=== PATIENT | male | born 1955 | race Caucasian/White ===

== ENCOUNTER 2019-08-04 14:54 | Outpatient (CLI) | payer OTHER ==
--- NOTE | 2019-08-04 16:13 | CT ---
CT CHEST WITH CONTRAST CLINICAL INDICATION: Recent chest x-ray suggested pulmonary nodule at the left lung base in a patient with cough. CT thora x is recommended. COMPARISON: Chest x-ray on 06/11/2019 FINDINGS: Aorta: The aorta is normal in caliber without evidence of an aortic dissection. Lungs: Minimal emphysematous changes are seen in the upper lobes. There is no discrete pulmonary nodu le, mass, or pleural effusion seen within the lungs bilaterally. Minimal volume loss is present at the right lung base and in the lingula. The questioned nodular density at the left lung base may have been related to atelectasis or irregularity of epicardial fat pad which is noted on this exam. Mediastinum: Calcified mediastinal and left hilar lymph nodes are present. No enlarged lymph nodes ar e seen. Thyroid gland: Incompletely imaged but where seen has a normal appearance. Osseous structures: Mild degenerative changes are seen in the spine. Chest wall: No abnormality visualized. Upper abdomen: Calcified hepatic and splenic granulomata are seen. The liver does demonstrate diminis hed attenuation likely attributable to fatty infiltration. IMPRESSION: 1. No discrete pulmonary nodule or mass is seen in the lungs bilaterally. There is no pulmonary nodul e to correspond to prior chest x-ray abnormality, and the findings on prior chest x-ray may have been related to atelectasis or mild irregularity of the epicardial fat pad seen at the left lung base on today's study. 2. Mild COPD. 3. Evidence of prior granulomatous disease. 4. Fatty infiltration of the liver.
== END 2019-08-04 14:55 | disposition home or self-care (01) ==
LOC: SCSCT 14:54
PROVIDERS: ATTEND Family Medicine
DX: R91.1 Solitary pulmonary nodule (principal); J44.9 Chronic obstructive pulmonary disease, unspecified; K76.0 Fatty (change of) liver, not elsewhere classified
CPT/HCPCS: 71260; 82565